=== PATIENT | male | born 1980 | race Caucasian/White ===

== ENCOUNTER 2021-01-19 15:29 | Outpatient (CLI) | payer SELFPAY | END 2021-01-19 15:30 | disposition EMS.NT | LOC: EMS 15:29 | DX: R56.9 Unspecified convulsions (principal) ==

== ENCOUNTER 2022-11-08 21:29 | Outpatient (CLI) | payer BC | END 2022-11-08 21:30 | disposition critical access hospital (66) | LOC: EMS 21:29 | DX: S01.452A Open bite of left cheek and temporomandibular area, initial encounter (principal); S01.412A Laceration without foreign body of left cheek and temporomandibular area, initial encounter; S01.411A Laceration without foreign body of right cheek and temporomandibular area, initial encounter; W54.0XXA Bitten by dog, initial encounter; Y92.003 Bedroom of unspecified non-institutional (private) residence as the place of occurrence of the external cause | CPT/HCPCS: A0425; A0429 ==

== ENCOUNTER 2022-11-08 21:52 | Emergency (ER) | payer BC ==
--- NOTE | 2022-11-08 23:33 | ED Physician Documentation ---
PD HPI HEAD INJURY - Stated complaint Stated Complaint: DOG BITE - Chief complaint Chief Complaint: Laceration - History obtained from History obtained from: Patient - History of Present Illness Mechanism of head injury: Other (dog bite) Where head injury occurred: Home Timing - onset: Enter time (21:00) Pain level now: 7 Location of injury: Front Quality of pain: Pain Associated symptoms: No: LOC, AMS Contributing factors: No: Anticoagulated, Intoxicated Recently seen: Not recently seen - Additional information Additional information: HPI from patient. Patient presents due to injury sustained at approximately 9 PM tonight when he was at home in bed with his dog on the bed next to him; patient says the dog suddenly bit him on his face. No apparent provocation. Patient says the dog has been fully immunized and is up-to-date on immunizations. Patient is up-to-date on tetanus prophylaxis, with his most recent tetanus booster shot approximately 2 or 3 years ago. Patient denies visual changes such as blurry or double vision. Denies loss of consciousness. His dog, the dog that bit him, is a Serbian Murphy. Review of Systems Eyes: denies: Loss of vision, Decreased vision, Photophobia Skin: reports: Laceration (s), Bite / sting Neurologic: denies: Headache, LOC PD PAST MEDICAL HISTORY - Past Medical History Past Medical History: Yes Neuro: Seizure disorder (epilepsy) - Past Surgical History Past Surgical History: No - Present Medications Home Medications: Ambulatory Orders Medication Instructions Recorded Confirmed lamoTRIgine [Lamictal Odt] 400 mg PO BID 12/05/13 09/24/16 Amox/Clav 875/125 [Augmentin 1 tablet PO Q12H 10 Days #20 tablet 11/09/22 875/125 Tab] - Allergies Allergies/Adverse Reactions: Allergies Allergy/AdvReac Type Severity Reaction Status Date / Time Penicillins Allergy Rash Verified 11/08/22 21:55 - Living Situation Living Arrangement: reports: At home - Social History Does the pt smoke?: Yes Smoking Status: Current every day smoker Does the pt drink ETOH?: Yes Does the pt have substance abuse?: No - Immunizations Immunizations are current?: Yes - POLST Patient has POLST: No PD ED PE NORMAL - Vitals Vital signs reviewed: Yes - General General: Alert and oriented X 3, Well developed/nourished, Other (appears uncomfortable at times during H+P due to pain) - HEENT HEENT: PERRL, EOMI PD ED PE EXPANDED - HEENT HEENT Visual: 1 - tenderness (both lacerations and avulsed skin noted; no bone/cartilage exposure. no septal hematoma either nare) 2 - laceration (sub-centimeter (approximately 5-8 mm) laceration adjacent to medial canthus) 3 - bruising, swelling, tenderness 4 - abrasion, laceration (V-shaped lesion, vertex of which is abrasion, the lateral end of the inferior defect is a 1 cm laceration, lateral end of superior aspect is 3 cm laceration) Results - Vitals Vitals: Vital Signs - 24 hr 11/08/22 11/09/22 21:55 03:24 Temperature 36.9 C Heart Rate 86 67 Respiratory 16 17 Rate Blood Pressure 140/90 H 119/76 O2 Saturation 98 96 Oxygen O2 Source Room air - Labs Labs: Laboratory Tests 11/09/22 02:15 Nasal Adenovirus (PCR) NOT DETECTED Nasal B. parapertussis DNA (PCR) NOT DETECTED Nasal Coronavir 229E PCR NOT DETECTED Nasal Coronavir HKU1 PCR NOT DETECTED Nasal Coronavir NL63 PCR NOT DETECTED Nasal Coronavir OC43 PCR NOT DETECTED Nasal Enterovir/Rhinovir PCR NOT DETECTED Nasal Influenza B PCR NOT DETECTED Nasal Influenza A PCR NOT DETECTED Nasal Parainfluen 1 PCR NOT DETECTED Nasal Parainfluen 2 PCR NOT DETECTED Nasal Parainfluen 3 PCR NOT DETECTED Nasal Parainfluen 4 PCR NOT DETECTED Nasal RSV (PCR) NOT DETECTED Nasal B.pertussis DNA PCR NOT DETECTED Nasal C.pneumoniae (PCR) NOT DETECTED Jacek Human Metapneumo PCR NOT DETECTED Nasal M.pneumoniae (PCR) NOT DETECTED Nasal SARS-CoV-2 (PCR) NOT DETECTED PD Medical Decision Making - ED course Complexity details: re-evaluated patient, considered differential, d/w patient, d/w email production consultant (Dr. Tyson Adams) ED course: patient is given 5mg oxycodone x 2 during ED stay with good pain relief (both by visual appearance as well as patient report of pain relief). He is also given 875 mg PO Augmentin for wound prophylaxis. The most concerning finding on exam is the laceration that is immediately adjac ent to the right medial canthus, directly over region of the nasolacrimal duct/sac. I also note recurrent tearing of the right eye (notably not on the left) on initial exam as well as (consistently) on multiple reevaluations during his ED stay. This raises the concern of injury to the tear drainage system. I discussed this case with Dr. Tyson Adams (OM at [facility]); he shares the same concern and recommends transfer to appropriate specialist or subspecialist (such as occulopastics). I then contacted [facility] and was put in touch with Dr. Mariscal, on-call ophthalmology. He agrees that patient is appropriate for transfer to [facility]. Plan is to transfer patient to [facility] ED where ophthalmology can be consulted with repair of the lacerations deferred until he is evaluated at [facility] ED. As per my conversation with Dr. Mariscal and his recommendation, moist gauze was placed over the areas of injury and I instructed patient to endeavor to keep these applied until he is evaluated in the [facility] ED. Patient is agreeable and comfortable with this plan. We discussed options for transfer and patient prefers to be driven there by family. Transfer by private vehicle is appropriate for this case. Patient understands he is not to drive, and there is a family member in the ED at bedside who confirms that she will drive patient home and that another family member will be there to then immed iately take patient to [facility]. He voices understanding that he is not to stay home for any length of time, with plan being to immediately proceed to [facility]. I did offer transfer by BLS but patient and family are comfortable/confident with private vehicle transfer. I did electronically submit a prescription for a course of augmentin to [facility] in [place]. I explained to patient that should the treating physician(s) at [facility] recommend a different antibiotic, I would defer to their judgment, but that if they agree with the augmentin rx, this has already been submitted to his pharmacy. Patient tells me he has no known drug allergies. I mentioned to him that [employer] indicates a penicillin allergy, which he says is incorrect (he says initially this was an allergy he was told he had in [facility], but that he recently was given penicillin for an infectious issue and that he had no adverse effect throughout a full course of this antibiotic). - Consults Consults: Consulted (name) (Dr. Tyson Adams) Departure - Departure Disposition: 02 Transfer Acute Care Hosp Clinical Impression: Dog bite of face Qualifiers: Encounter type: initial encounter Qualified Code(s): S01.85XA - Open bite of other part of head, initial encounter Condition: Good Instructions: ED Bite Dog Prescriptions: Amox/Clav 875/125 [Augmentin 875/125 Tab] 1 tablet PO Q12H 10 Days #20 tablet Comments: I have discussed your case with the track superintendent on-call at [facility] and he agrees that it would be best for you to be evaluated in the [facility] emergency department. It is reasonable to have someone drive you there (this is called transfer by private vehicle), but, as we discussed, it is paramount that you get there as soon as you can. You will likely also need repair (stitches) of some of the facial lacerations and possibly the nasal injury. These wounds can be evaluated and repaired in the [facility] emergency department. I have electronically submitted a prescription for an antibiotic (Augmentin) to the [facility] pharmacy in [place]. If any of the physicians that evaluate you at [facility] prescribe you a different antibiotic, I would defer to their judgment (in other words, you can go with what ever antibiotic or antibiotics they prescribe instead of the Augmentin.) However, mention to the physicians that evaluate you at [facility] that I have provided you an Augmentin prescription, so that you do not end up getting two prescriptions for the same antibiotic. Discharge Date/Time: 11/09/22 04:04
--- NOTE | 2022-11-08 23:33 | ED Physician Documentation ---
PD HPI SKIN - Stated complaint Stated Complaint: DOG BITE - Chief complaint Chief Complaint: Laceration PD PAST MEDICAL HISTORY - Past Surgical History Past Surgical History: No - Present Medications Home Medications: Ambulatory Orders Medication Instructions Recorded Confirmed lamoTRIgine [Lamictal Odt] 400 mg PO BID 12/05/13 09/24/16 - Allergies Allergies/Adverse Reactions: Allergies Allergy/AdvReac Type Severity Reaction Status Date / Time Penicillins Allergy Rash Verified 11/08/22 21:55 - Social History Does the pt smoke?: Yes Smoking Status: Current every day smoker Does the pt drink ETOH?: Yes Does the pt have substance abuse?: No - Immunizations Immunizations are current?: Yes - POLST Patient has POLST: No Results - Vitals Vitals: Vital Signs - 24 hr 11/08/22 21:55 Temperature 36.9 C Heart Rate 86 Respiratory 16 Rate Blood Pressure 140/90 H O2 Saturation 98 Oxygen O2 Source Room air
[2022-11-08] MEDS ORDERED: oxyCODONE 5 MG TABLET PO STA (23:43)
[2022-11-09] MEDS ORDERED: AMOX/CLAV 875 MG/125 MG TABLET PO STA (03:02)
[2022-11-09] MEDS ORDERED: oxyCODONE 5 MG TABLET PO STA (03:16)
[2022-11-09 03:17] LABS: B. PARAPERTUSSIS- RESP PCR PAN NOT DETECTED; B. PERTUSSIS- RESP PCR PANEL NOT DETECTED; C. PNEUMONIAE- RESP PCR PANEL NOT DETECTED; CORONAVIRUS 229E-RESP PCR NOT DETECTED; CORONAVIRUS HKU1-RESP PCR NOT DETECTED; CORONAVIRUS NL63-RESP PCR NOT DETECTED; CORONAVIRUS OC43-RESP PCR NOT DETECTED; HUMAN METAPNEUMOVIRUS NOT DETECTED; INFLUENZA A- RESP PCR PANEL NOT DETECTED; INFLUENZA B - RESP PCR PANEL NOT DETECTED; M. PNEUMONIAE- RESP PCR PANEL NOT DETECTED; PARAINFLUENZA VIRUS 1 NOT DETECTED; PARAINFLUENZA VIRUS 2 NOT DETECTED; PARAINFLUENZA VIRUS 3 NOT DETECTED; PARAINFLUENZA VIRUS 4 NOT DETECTED; RHINOVIRUS/ENTEROVIRUS NOT DETECTED; RSV- RESP PCR PANEL NOT DETECTED; SARS-CoV-2 -RESP PCR PANEL NOT DETECTED
[2022-11-09 03:25] VITALS: BP 119/76
== END 2022-11-09 04:04 | disposition short-term general hospital (02) ==
LOC: EDUNIT# → ED 21:52
DX: S01.25XA Open bite of nose, initial encounter (principal); S01.452A Open bite of left cheek and temporomandibular area, initial encounter; S01.451A Open bite of right cheek and temporomandibular area, initial encounter; W54.0XXA Bitten by dog, initial encounter; Y93.84 Activity, sleeping; Y92.003 Bedroom of unspecified non-institutional (private) residence as the place of occurrence of the external cause; F17.200 Nicotine dependence, unspecified, uncomplicated; Z20.822 Contact with and (suspected) exposure to COVID-19
CPT/HCPCS: 87633; 99284; 99285; A9270

== ENCOUNTER 2024-07-03 09:53 | Day surgery (SDC) | payer OTHER ==
--- NOTE | 2024-07-03 06:30 | HISTORY & PHYSICAL EXAMINATION ---
PMH/PSH - Past Medical History Cardiovascular: positive: None Respiratory: positive: None Neuro: positive: Seizure disorder (epilepsy) Endocrine/Autoimmune: positive: None GI: positive: GERD : positive: None HEENT: positive: Other Psych: positive: None Musculoskeletal: positive: Other Derm: positive: Other MRSA Hx?: No Social & Family Hx - Social History Does the pt smoke?: Yes Smoking Status: Current every day smoker Does the pt drink ETOH?: Yes Does the pt have substance abuse?: No - POLST Patient has POLST: No Meds/Allgy - Home Medications Home Medications: Ambulatory Orders Medication Instructions Recorded Confirmed lamoTRIgine [Lamictal Odt] 400 mg PO BID 12/05/13 07/03/24 Divalproex ER [Depakote ER] 250 mg PO BID 07/02/24 07/03/24 - Allergies Allergies/Adverse Reactions: Allergies Allergy/AdvReac Type Severity Reaction Status Date / Time No Known Drug Allergies Allergy Verified 07/03/24 10:26 Impression/Plan - Problem List Problem List: Pre-op H&P I am asked to see Iron for a screening colonoscopy examination. GI symptoms: None Family history of colon cancer/polyps: + Grandparents Personal history of colon polyps: N/A Last colonoscopy examination: N/A Anticoagulant use: No Meds: Lamictal; Depakote Allergies:None PMH: Epilepsy PSH: N/A SH: Cig: No ETOH: Social The Past Family, Social and Personal History has been reviewed with the patient. ROS Denies fevers, chills, night sweats, shortness of breath, chest pain, change in the color of skin or urine, diarrhea, constipation, hematemesis, hematochezia, headache, visual changes, muscle aches. PE VSS, Afeb HEENT: Pupils equal, round and reactive to light, sclera anicteric, normal hearing, oral mucous membranes moist and without lesions NECK: Supple without lymphadenopathy, thyromegaly or carotid bruits LUNGS: Clear to auscultation without wheezing HEART: NSR without murmurs CHEST: Equal and symmetric expansion, no rib pain ABD: Soft, nontender, no hepatosplenomegaly, no hernias GROIN: No hernias or lymphadenopathy EXTREMITIES: Normal neuro and muscular exam SKIN: Anicteric Radiologic Studies N/A Assessment: Request for a screening colonoscopy examination. Plan: Screening colonoscopy under sedation through the Day Surgery admission protocol at [facility]. Consent: Iron has been counseled for the procedure, it's indications, risks, benefits and expected outcome as well as alternative therapies. We specifically discussed risks associated with anesthesia and insertion of the endoscope into the large intestine which includes bleeding and injury to the colon which may require surgical intervention. Iron understands, agrees, and consents to the proposed operative strategy and requests that we proceed with the procedure as outlined in our discussion. Jitendra Mckinnon MD, [facility] General Surgery Service
[2024-07-03] MEDS: LACTATED RINGERS 1,000 ML IV ONE ×2 (09:59→12:09)
[2024-07-03] MEDS ORDERED: PROPOFOL 500 MG/50 ML 500 MG/50 ML VIAL ONE (10:59)
[2024-07-03] MEDS ORDERED: MIDAZOLAM 2 MG/2 ML VIAL ONE (10:59)
--- NOTE | 2024-07-03 10:59 | ANESTHESIA ---
Pre-Anesthesia VS, & Labs - Diagnosis screening - Procedure colonoscopy Vital Signs: Temp Pulse Resp BP Pulse Ox O2 Flow Rate 36.8 C 65 20 109/70 98 07/03/24 10:20 07/03/24 10:20 07/03/24 10:20 07/03/24 10:20 07/03/24 10:20 Height: 5 ft 8 in Weight (kg): 83 kg Body Mass Index: 27.8 BMI Classification: Overweight - NPO >8 hours Home Medications and Allergies Home Medications: Ambulatory Orders Divalproex ER [Depakote ER] 250 mg PO BID 07/02/24 lamoTRIgine [Lamictal Odt] 400 mg PO BID 12/05/13 Divalproex ER [Depakote ER] 250 mg PO BID 07/02/24 Allergies/Adverse Reactions: Allergies Allergy/AdvReac Type Severity Reaction Status Date / Time No Known Drug Allergies Allergy Verified 07/03/24 10:26 Anes History & Medical History - Anesthetic History Anesthesia Complications: reports: No previous complications Family history of Anesthesia Complications: Denies Family history of Malignant Hyperthermia: Denies - Medical History Cardiovascular: reports: None Pulmonary: reports: None Gastrointestinal: reports: GERD Urinary: reports: None Neuro: reports: Seizure disorder (epilepsy) Musculoskeletal: reports: Other Endocrine/Autoimmune: reports: None Skin: reports: Other Smoking Status: Current every day smoker Psychosocial: reports: Alcohol History of Cancer?: No Exam General: Alert, Oriented x3, Cooperative Dental: Poor dentition Mouth Openin Fingerbreadth Neck Mobility: Normal Mallampati classification: II Thyromental Distance: 4-6 cm Respiratory: Lungs clear Cardiovascular: Regular rate Plan Anesthesia Type: General, Total IV Consent for Procedure(s) Verified and Reviewed: Yes Code Status: Attempt Resuscitation ASA classification: 2-Mild systemic disease Is this case an emergency?: No
[2024-07-03 13:08] VITALS: BP 100/64; O2SAT 98
--- NOTE | 2024-07-03 15:38 | ANESTHESIA POST OP EVALUATION ---
Anesthesia Post Eval - Post Anesthesia Eval Vitals: Last Vital Signs Temp 36.7 C 07/03/24 12:09 Pulse 64 07/03/24 13:03 Resp 17 07/03/24 13:03 BP 100/64 07/03/24 13:03 Pulse Ox 98 07/03/24 13:03 O2 Flow Rate CV Function Including HR & BP: Stable Pain Control: Satisfactory Nausea & Vomiting: Negative Mental Status: Baseline Respiratory Status: Airway Patent Hydration Status: Satisfactory Anesthesia Complications: None
== END 2024-07-03 09:54 | disposition home or self-care (01) ==
LOC: SDS 09:53
PROVIDERS: ATTEND Surgery
PROC: 0DBP8ZX Excision of Rectum, Via Natural or Artificial Opening Endoscopic, Diagnostic (ICD-10-PCS; principal; 2024-07-03 11:00)
DX: Z12.11 Encounter for screening for malignant neoplasm of colon (principal); K63.5 Polyp of colon; G40.909 Epilepsy, unspecified, not intractable, without status epilepticus; F17.210 Nicotine dependence, cigarettes, uncomplicated
CPT/HCPCS: 45385; J7120

== ENCOUNTER 2024-07-12 08:36 | Outpatient (CLI) | payer OTHER ==
[2024-07-12 14:59] LABS: BASOPHILS # (AUTO) 0.1 10^3/uL (0.0-0.1); BASOPHILS % (AUTO) 1.9 %; EOSINOPHILS # (AUTO) 0.3 10^3/uL (0.0-0.7); EOSINOPHILS % (AUTO) 5.1 %; HCT - HEMATOCRIT 48.4 % (42.0-52.0); HGB - HEMOGLOBIN 15.9 g/dL (14.0-18.0); LYMPHOCYTES # (AUTO) 2.5 10^3/uL (1.5-3.5); LYMPHOCYTES % (AUTO) 39.7 %; MEAN CORPUSCULAR HGB CONC 32.9 g/dL (32.0-36.0); MEAN CORPUSCULAR VOLUME 88.3 fL (80.0-94.0); MEAN PLATELET VOLUME 9.7 fL (7.4-11.4); MONOCYTES # (AUTO) 0.5 10^3/uL (0.0-1.0); MONOCYTES % (AUTO) 7.3 %; NEUTROPHILS # (AUTO) 2.9 10^3/uL (1.5-6.6); NEUTROPHILS % (AUTO) 45.8 %; PLT - PLATELET COUNT 439 10^3/uL (130-450); RED BLOOD COUNT 5.48 10^6/uL (4.70-6.10); WHITE BLOOD COUNT 6.3 x10^3/uL (4.8-10.8)
[2024-07-12 15:32] LABS: ALBUMIN 4.5 g/dL (3.2-5.5); ALBUMIN/GLOBULIN RATIO 1.7 (1.0-2.2); ALKALINE PHOSPHATASE 36 IU/L (42-121); ALT ALANINE AMINOTRANSFERASE 17 IU/L (10-60); AST ASPARTATE AMINOTRANSFERASE 14 IU/L (10-42); BILIRUBIN,TOTAL 0.5 mg/dL (0.2-1.0); BUN - BLOOD UREA NITROGEN 14 mg/dL (6-20); CALCIUM 9.4 mg/dL (8.5-10.3); CARBON DIOXIDE - CO2 28 mmol/L (21-32); CHLORIDE 104 mmol/L (101-111); CHOL/HDL RATIO 3.1 (<5.0); CHOLESTEROL 192 mg/dL; CREATININE 0.9 mg/dL (0.6-1.3); GFR - MDRD 92 (>89); GLUCOSE 95 mg/dL (74-104); HDL CHOLESTEROL 61 mg/dL; LDL CHOLESTEROL,CALCULATED 120 mg/dL; POTASSIUM 4.7 mmol/L (3.5-4.5); SODIUM 137 mmol/L (135-145); TOTAL PROTEIN 7.1 g/dL (6.4-8.9); TRIGLYCERIDES 56 mg/dL; VLDL CHOLESTEROL 11 mg/dL
== END 2024-07-12 08:37 | disposition home or self-care (01) ==
LOC: LAB.S 08:36
PROVIDERS: ATTEND Nurse Practitioner Acute Care
DX: Z13.228 Encounter for screening for other metabolic disorders (principal); Z13.220 Encounter for screening for lipoid disorders; Z13.29 Encounter for screening for other suspected endocrine disorder; Z13.0 Encounter for screening for diseases of the blood and blood-forming organs and certain disorders involving the immune mechanism
CPT/HCPCS: 36415; 80053; 80061; 83721; 84443; 85025

== ENCOUNTER 2024-07-15 16:28 | Outpatient (CLI) | payer OTHER ==
--- NOTE | 2024-07-16 15:05 | XRAY Report ---
PROCEDURE: Shoulder 2+V LT INDICATIONS: LT SHOULDER PAIN TECHNIQUE: 3 views of the shoulder were acquired. COMPARISON: None. FINDINGS: Bones: No fractures or dislocations. No suspicious bony lesions. Visualized ribs appear intact. Moderate acromioclavicular and severe glenohumeral degenerative narrowing. There is significant scler osis of tdfi-[id number] with periarticular osteophytes. Multiple areas of calcific density are present o verlying the joint space. Soft tissues: No suspicious soft tissue calcifications. The visualized lungs are within normal limi ts. IMPRESSION: Severe left shoulder arthritic change. Multiple areas of calcification are present. These may represe nt dystrophic calcifications, osteophytes and/or loose bodies. Further evaluation with CT/MRI is kimberly mmended. Reviewed by: Darcie Sequeira MD on 07/16/2024 3:04 PM PDT Approved by: Darcie Sequeira MD on 07/16/2024 3:04 PM PDT Station ID: [id number]
== END 2024-07-15 16:29 | disposition home or self-care (01) ==
LOC: DI.S 16:28
PROVIDERS: ATTEND Nurse Practitioner Acute Care
DX: M19.012 Primary osteoarthritis, left shoulder (principal); M25.812 Other specified joint disorders, left shoulder